=== PATIENT | male | born 1950 | race Caucasian/White ===

== ENCOUNTER 2016-10-10 07:39 | Day surgery (SDC) | payer BC, MEDICARE ==
[~2016-10-10 07:39] MED LIST: RINGER'S SOLUTION,LACTATED 1,000 ML IV PRN
--- OUTSIDE RECORDS SUMMARY | 2016-10-10 07:56 | XMS REPORT | Continuity of Care Document ---
:1950 Author Organization [facility] ([facility]) Address [address] [place] [address] Phone [phone] Care Team Providers Name Role Phone Deidra Rivera Primary Care Provider [phone] Source Comments This disclosure is being made pursuant to the Care Everywhere program, applicable federal and state laws, and may not contain all informaitonavailable regarding this patient.[facility] ([facility]) Active Allergies and Adverse Reactions Allergen Noted Date Severity Reactions Comments No Known Allergies 11/14/2011 NO REACTION Current Medications Prescription Sig. Disp. Refills Start Date End Date Status SILDENAFIL CITRATE Take by mouth as Active (VIAGRA PO) needed. latanoprost instill 1 Drop 1 Bottle 4 12/07/2010 Active (XALATAN) 0.005 % onto the left eye ophthalmic every evening. solution Indications: Ocular Hypertension tamsulosin 0.4 mg TK 1 C PO QD 11 09/21/2016 Active capsule albuterol 90 Use 2 Puffs by Active mcg/Actuation inhalation every inhaler 6 hours as needed. losartan 25 mg Take 1 tablet (25 30 tablet 2 10/05/2016 Active tablet mg total) by mouth daily. metoPROLol Take 1 tablet (25 30 tablet 2 10/05/2016 Active succinate 25 mg XL mg total) by tablet mouth daily. OMEPRAZOLE PO Take by mouth. Discontinued 7 doxazosin 1 mg Take 1 tab daily 42 Tab 0 11/18/2011 Discontinued tablet until next follow 7 up in our clinic Indications: Benign Prostatic Hypertrophy Active Problems Problem Noted Date Nonrheumatic aortic valve stenosis 10/05/2016 Nonrheumatic aortic valve insufficiency 10/05/2016 Essential hypertension, benign 10/05/2016 Snoring 10/05/2016 BPH (benign prostatic hyperplasia) 11/18/2011 Premature ejaculation 11/18/2011 Central retinal vein occlusion, left eye 03/03/2010 Overview: Formatting of this note may be different from the original. Right Eye Left Eye Time To Recurrence: Time To Recurrence: Date VA (D cc) CMT Status Procedure VA (D cc) CMT Status Procedure Cmts 01/27/2010 Avastin 03/03/2010 20/20 20/50 Avastin # [id number] 04/16/2010 2020 20/40+1eccen. Avastin #[id number] 06/16/10 Avastin [id number] 08/25/201020 20/40 -1 No injection given 10/20/2010 20/40-1 Most Recent Encounters Date Type Specialty Providers Description 10/05/2016 Office Visit [facility] V[facility] Renetta Alejandro, Dx: Murmur (Primary DO Dx) Social History Tobacco Use Types Packs/Day Years Used Date Never Smoker Smokeless Tobacco: Never Used Alcohol Use Drinks/Week oz/Week Comments Yes 2 beers per week Last Filed Vital Signs Vital Sign Reading Time Taken Blood Pressure 150/72 10/05/2016 10:12 AM CDT Pulse 72 10/05/2016 10:12 AM CDT Temperature 36.9 C (98.4 F) 11/18/2011 12:44 PM CDT Respiratory Rate 20 11/18/2011 12:44 PM CDT Height 1.753 m (5' 9") 10/05/2016 10:12 AM CDT Weight 88.451 kg (195 lb) 10/05/2016 10:12 AM CDT Body Mass Index 28.78 10/05/2016 10:12 AM CDT Oxygen Saturation - - Plan of Care Date Type Specialty Providers Description 01/11/2017 Appointment [facility] V[facility] Renetta Alejandro, Chief Comp: Patient DO Reported Reason For [address] [place] [address] [phone] (Fax) Health Maintenance Due Date Last Done Comments HCV Screening 1950 Hepatitis B Vaccine (1 of 3 - Primary Series) 1950 Tdap Vaccine 1960 Lipid Disorder Screening 1967 Td Vaccine 1967 Colonoscopy 1999 Prostate Cancer Screening 1999 Zoster Vaccine 2009 Pneumococcal Vaccine (1 of 2 - PCV13) 2014 Influenza Vaccine: Seasonal (#1) 02/15/2016 Results from Last 3 Months Not on file
[2016-10-10] MEDS ORDERED: RINGER'S SOLUTION,LACTATED 1,000 ML IV PRN (09:30)
[2016-10-10 10:32] VITALS: BP 125/69
--- NOTE | 2016-10-10 17:18 | OR ---
Operative Report - Dictated Report Narrative: Operative Report Date of operation: 10/10/2016 Preoperative diagnosis: Anemia. Hiatal hernia. History of colon polyps. Heme positive stool. Postoperative diagnosis: Large hiatal hernia, gastropathy (pathology and CLOtest pending). 0.7 cm polyp at 30 cm (pathology pending). Significant diverticulosis Operation: EGD with biopsies. Colonoscopy with snare polypectomy at 30 cm Surgeon: Dr Martinez Anesthesia: MONICA BRANCH CRNA Indications for procedure: The patient is a 66-year-old male referred by A Miguel MARTINS. She has a large hiatal hernia on CT scan. He has had previous biopsy with Olmos's esophagus. He had an adenomatous colon polyp in 2001 and a tubular adenoma in 2009. He has had a heme positive stool and is anemic. Findings: Large hiatal hernia with mild gastropathy (pathology and CLOtest pending). The GE junction was normal. 0.7 cm polyp at 30 cm. Significant sigmoid diverticulosis, otherwise normal colonoscopy to the cecum Narrative of procedure: The patient was identified preoperatively, and prior to the administration of anesthetic a multidisciplinary timeout was observed EGD: With the patient in the recumbent position, a bite-block was placed, intravenous sedation was administered, and the patient's eyes covered with a towel. The flexible fiberoptic gastroscope was advanced into the posterior pharynx which appeared normal. The supraglottic larynx appeared normal. The cords appeared normal, moved well, and opposed in the midline. The scope was advanced under direct vision into the proximal esophagus which appeared normal. The esophagus appeared freely distensible with normal mucosa. The esophageal mucosa appeared normal down to the gastroesophageal junction which was sharp and noninflamed. The GE junction appeared normally distensible. There was a large hiatal hernia present. The scope was advanced into the stomach proper which was insufflated with air. There was mild gastric erythema but no silvano ulcers or neoplastic lesions were appreciated including a retroflexed view of the proximal stomach which also clearly demonstrated the large hiatal hernia. The pylorus appeared patent. The scope was advanced into the duodenal bulb which appeared normal. The scope was advanced further to the horizontal portion of the duodenum which appeared normal, specifically the villous architecture appeared well preserved and clear bile was present. The scope was slowly withdrawn through the duodenal bulb with confirmation that no active ulcer was present. The scope was withdrawn into the stomach and medical service representative biopsies of gastric mucosa obtained for CLOtest and pathology. The biopsy sites were seen to be hemostatic. The insufflated air was removed, the scope withdrawn from the patient, and this portion of the procedure terminated. COLONOSCOPY: The patient was then placed in the left lateral position, and the perineum was inspected. There was no evidence of pilonidal disease or skin breakdown. The external appearance of the anus was normal. Sphincter tone was good. The flexible fiberoptic colonoscope was inserted into the rectum which was insufflated with air. The rectal mucosa and submucosal vascular pattern appeared normal, the prep was seen to be complete. The scope was advanced through the sigmoid colon, which contained numerous large noninflamed diverticular openings some of which were impacted with stool. At 30 cm a pedunculated polyp was encountered. This was amputated flush with the colonic wall using a cautery snare. The polyp was then retrieved and submitted to pathology. The scope was readvanced to the polypectomy site which was seen to be complete and hemostatic. The scope was advanced up the descending colon, and around the splenic flexure where the triangular haustral architecture of the transverse colon was seen. The scope was advanced across the transverse colon, around the hepatic flexure to the cecum, where the confluence of tenia and the ileocecal valve were identified. The mucosa at this level appeared normal. The scope was then slowly withdrawn in a circular fashion so that all aspects of colonic mucosa were inspected. The colon was normal in course and caliber. The haustral architecture appeared well preserved throughout with no evidence of external compression. The mucosa and submucosal vascular pattern appeared normal, specifically there was no gross evidence to suggest colitis or inflammatory bowel disease and no AV malformations were seen. The diverticulosis was moderate in degree and confined primarily to the sigmoid colon. Aside from the previously addressed polyp at 30 cm no additional polyps were encountered. The scope was gradually withdrawn to the level of the rectum. As much insufflated air as possible was removed. The scope was withdrawn from the patient and the procedure terminated. The patient tolerated the anesthetic and procedure well without complication and was transferred back to the ambulatory surgery area awake and in stable condition. The patient remained stable throughout a period of postoperative observation. He denied abdominal discomfort, was able to tolerate by mouth intake, and was up without assistance. I shared the operative findings with the patient and he was given copies of the photographs which appear in the medical record. He was discharged home with instructions not to engage in hazardous activity today, but may resume normal activity tomorrow, and advance diet as tolerated. He is to continue those medications as listed in the history and physical exam. I made arrangements to contact him with the biopsy reports and will make additional recommendations for treatment and follow-up based upon those results. Reviewed and electronically signed
== END 2016-10-10 07:40 | disposition home or self-care (01) ==
LOC: AMB 07:39
PROVIDERS: ATTEND Surgery
PROC: 0DBE8ZX Excision of Large Intestine, Via Natural or Artificial Opening Endoscopic, Diagnostic (ICD-10-PCS; principal; 2016-10-10 09:00)
PROC: 0DB68ZX Excision of Stomach, Via Natural or Artificial Opening Endoscopic, Diagnostic (ICD-10-PCS; 2016-10-10 09:00)
DX: Z12.11 Encounter for screening for malignant neoplasm of colon (principal); K63.5 Polyp of colon; K57.30 Diverticulosis of large intestine without perforation or abscess without bleeding; D64.9 Anemia, unspecified; K44.9 Diaphragmatic hernia without obstruction or gangrene; J45.909 Unspecified asthma, uncomplicated; N40.0 Benign prostatic hyperplasia without lower urinary tract symptoms; Z68.28 Body mass index [BMI] 28.0-28.9, adult